=== PATIENT | female | born 1935 | race Caucasian/White ===

== ENCOUNTER 2019-07-29 19:31 | Emergency (ER) | payer MEDICARE, OTHER ==
[2019-07-29] MEDS: AMOXICILLIN/CLAV 875 MG TAB PO (23:11)
[2019-07-29] MEDS: metroNIDAZOLE 500 MG TAB PO (23:11)
== END 2019-07-29 23:23 | disposition home or self-care (01) ==
LOC: E/R 19:31
DX: K57.32 Diverticulitis of large intestine without perforation or abscess without bleeding (principal); E87.6 Hypokalemia; E11.9 Type 2 diabetes mellitus without complications; E03.9 Hypothyroidism, unspecified
CPT/HCPCS: 36415; 74176; 80053; 81003; 83690; 85025; 99284-25

== ENCOUNTER 2019-08-01 11:47 | Emergency (ER) | payer MEDICARE, OTHER | END 2019-08-01 14:22 | disposition home or self-care (01) | LOC: E/R 11:47 | DX: K92.1 Melena (principal); E11.9 Type 2 diabetes mellitus without complications; E03.9 Hypothyroidism, unspecified; R53.83 Other fatigue; Z79.84 Long term (current) use of oral hypoglycemic drugs | CPT/HCPCS: 36415; 80053; 85025; 85610; 85730; 99283 ==